=== PATIENT | male | born 2000 | race Hispanic/Latino ===

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

== ENCOUNTER 2019-01-15 09:05 | Emergency (ER) | payer MEDICAID, OTHER ==
[2019-01-15 10:09] LABS: Basophils # (Auto) 0.2 K/mm3 (0.0-0.1); Basophils % (Auto) 1.4 % (0.0-1.8); Eosinophils # (Auto) 0.2 K/mm3 (0.0-0.4); Eosinophils % (Auto) 1.5 % (0.0-4.3); Hematocrit 46.6 % (35.5-45.6); Hemoglobin 15.2 gm/dl (11.8-15.2); Lymphocytes # (Auto) 1.6 K/mm3 (1.2-5.4); Lymphocytes % (Auto) 11.3 % (13.4-35.0); Mean Corpuscular HGB Conc 33 % (32-34); Mean Corpuscular Volume 81 fl (84-94); Monocytes % (Auto) 6.9 % (0.0-7.3); Platelet Count 263 K/mm3 (140-440); Red Blood Count 5.75 M/mm3 (3.65-5.03); Red Cell Distribution Width 14.2 % (13.2-15.2)
--- NOTE | 2019-01-15 10:16 | Emergency Department Report ---
HPI - General Chief Complaint: Alcohol Time Seen by Provider: 01/15/19 09:23 - HPI HPI: 18-year-old male presents to the emergency department via EMS with complaint of some depression and using some illicit substances and alcohol last night. The patient identifies himself as a luna male and says that he has not supported at home. He feels that he is constantly judged and therefore he has not loved. The patient is tearful. The family members he is talking about are at bedside currently. Apparently they found him this morning landing on the ground, crying. He admitted to finding a reason to "sneak out" last night and he drank alcohol, smoked marijuana and did a dose of ecstasy. He has a past medical history listed of ADHD. Patient currently denies any suicidal or homicidal ideations. Family says that he has a history of suicidal ideations in the past and possibly even an attempt in which he cut his wrist and has been to an inpatient psychiatric facility before. The patient says he has trouble sleeping at night. 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 ED Past Medical Hx - Past Medical History Previous Medical History?: Yes Hx Psychiatric Treatment: (ADHD) Hx Asthma: Yes - Surgical History Additional Surgical History: T&A, left femur, left arm - Social History Smoking Status: Never Smoker Substance Use Type: Alcohol, Marijuana, Other ED Review of Systems ROS: Stated complaint: OVERDOSE Other details as noted in HPI Comment: All other systems reviewed and negative Constitutional: denies: chills, fever Respiratory: denies: cough, shortness of breath Cardiovascular: denies: chest pain, palpitations Gastrointestinal: denies: nausea, vomiting Skin: denies: rash, lesions Neurological: denies: headache, weakness Psychiatric: depression. denies: homicidal thoughts, suicidal thoughts Physical Exam - Physical Exam Vital Signs: Vital Signs 01/15/19 09:17 Temperature 98.3 F Pulse Rate 98 H Respiratory 20 Rate Blood Pressure 147/65 O2 Sat by Pulse 98 Oximetry Physical Exam: GENERAL: The patient is well-developed well-nourished. HENT: Normocephalic. Atraumatic. Patient has moist mucous membranes. EYES: Extraocular motions are intact. NECK: Supple. Trachea is midline. CHEST/LUNGS: Clear to auscultation. There is no respiratory distress noted. HEART/CARDIOVASCULAR: Regular. There is no tachycardia. There is no murmur. ABDOMEN: Abdomen is soft, nontender. Patient has normal bowel sounds. There is no abdominal distention. SKIN: Skin is warm and dry. NEURO: The patient is awake, alert, and oriented. The patient is cooperative. The patient has no focal neurologic deficits. Normal speech. MUSCULOSKELETAL: There is no tenderness or deformity. There is no evidence of acute injury. PSYCH: Patient is tearful. ED Course Vital Signs 01/15/19 09:17 Temperature 98.3 F Pulse Rate 98 H Respiratory 20 Rate Blood Pressure 147/65 O2 Sat by Pulse 98 Oximetry ED Medical Decision Making - Lab Data Result diagrams: 01/15/19 09:39 01/15/19 09:39 - EKG Data -: EKG Interpreted by Me EKG shows normal: sinus rhythm, axis, intervals, QRS complexes, ST-T waves Rate: normal - EKG Data When compared to previous EKG there are: previous EKG unavailable Interpretation: normal EKG - Medical Decision Making This patient presents to the emergency department for evaluation after he drank alcohol, use ecstasy, and smoked marijuana last night. The patient did so because he says that he feels unloved and judged by his family due to his homosexuality. The patient does appear to have a history of some depression, suicidal ideations and even a possible suicide attempt past, the patient currently denies any suicidal or homicidal ideations, or any auditory or visual hallucinations. Patient's labs have been mostly unremarkable. Urine drug was p ositive for amphetamines which is most likely from the ecstasy. The patient does not appear acutely intoxicated. Blood alcohol level is negative. He was seen by the psychiatric team who agrees that the patient does not meet criteria or require a 1013 or involuntary psychiatric admission. He was given multiple outpatient psychiatric referrals. He has been instructed to return to the emergency Department with any worsening of his symptoms, thoughts of harming himself or others, or with any acute distress. - Differential Diagnosis depression, substance abuse, bipolar disorder, mood disorder Critical Care Time: No Critical care attestation.: If time is entered above; I have spent that time in minutes in the direct care of this critically ill patient, excluding procedure time. ED Disposition Clinical Impression: Substance abuse Depression Qualifiers: Depression Type: unspecified Qualified Code(s): F32.9 - Major depressive disorder, single episode, unspecified Disposition: DC-01 TO HOME OR SELFCARE Is pt being admited?: No Condition: Stable Instructions: Depression (ED), Suicide Prevention for Adults (ED), Polysubstance Abuse (ED) Additional Instructions: You have been given multiple referrals for outpatient psychiatric care. I have also given you the referral for the [facility] Department. Return to the emergency department with any worsening of your symptoms, thoughts of harming yourself or others, or with any acute distress. Please avoid any further alcohol or illicit drug use. Referrals: [facility] [Outside] - 2-3 Days [facility] [Outside] - 2-3 Days Time of Disposition: 15:31
[2019-01-15 10:24] LABS: BUN/Creatinine Ratio 14; Blood Urea Nitrogen 10 mg/dL (9-20); Calcium 9.1 mg/dL (8.4-10.2); Hemolysis Index 7
[2019-01-15 11:45] VITALS: BP 116/49
[2019-01-15 12:21] LABS: Bilirubin,Urine NEG (Negative); Blood,Urine NEG (Negative); Color,Urine Yellow (Yellow); Mucus,Urine FEW /HPF; Protein,Urine <15 mg/dL mg/dL (Negative); Urobilinogen,Urine < 2.0 mg/dL (<2.0)
[2019-01-15 13:02] LABS: WBC,Urine < 1.0 /HPF (0.0-6.0)
--- NOTE | 2019-01-15 13:17 | Consultation ---
History of Present Illness - Reason for Consult Consult date: 01/15/19 Reason for consult: Mental Health Evaluation Requesting physician: DAVID NORMAN - Chief Complaint Chief complaint: "I used to much drugs" - History of Present Psychiatric Illness 18 y.o. male who presented to the ER for possible overdose. Today the patient was calm and cooperative during the assessment. He stated that he met an adult male online for a sexual encounter. He stated that this male offered him "drugs" that he wasn't familiar with. He stated that he ingested the drugs and felt side effects after the sexual encounter. He stated that the sexual encounter was "consensual." Once he returned home, the patient stated that he felt strange and was brought to the ER for evaluation. The patient has a hx of self injury. He denies any previous self injury behavior since his last mental health hospitalization. He denies SI/HI's and AVH's. He denies being depressed. He denies alcohol consumption (etoh). Medications and Allergies Allergies Allergy/AdvReac Type Severity Reaction Status Date / Time No Known Allergies Allergy Verified 09/05/17 15:47 Past psychiatric history - Past Medical History Past Medical History: No medical history Past Surgical History: No surgical history - past Psychiatric treatment and history psychiatric treatment history: Hx of self injury. Denies a fam psy hx. - Social History Social history: lives with family Mental Status Exam - Vital signs Last Vital Signs Temp 98.3 F 01/15/19 09:17 Pulse 92 H 01/15/19 11:44 Resp 17 01/15/19 11:44 BP 116/49 01/15/19 11:44 Pulse Ox 99 01/15/19 11:44 - Exam Narrative exam: MSE: Appearance: calm, cooperative Behavior: regular eye contact Speech: regular rate and tone Mood: "better" Affect: congruent to mood Thought Process: logical Thought Content: denies SI/HI's and AVH's Motor Activity: sitting up in bed Cognition: A/O x 3 Insight: appropriate Judgment: fair Results Result Diagrams: 01/15/19 09:39 01/15/19 09:39 Abnormal lab results 01/15/19 01/15/19 01/15/19 Range/Units 09:39 09:39 09:39 WBC (4.5-11.0) K/mm3 RBC (3.65-5.03) M/mm3 Hct (35.5-45.6) % MCV (84-94) fl MCH (28-32) pg Lymph % (Auto) (13.4-35.0) % Elliott # (0.0-0.8) K/mm3 Baso # (0.0-0.1) K/mm3 Seg Neutrophils % (40.0-70.0) % Seg Neutrophils # (1.8-7.7) K/mm3 Potassium 3.5 L (3.6-5.0) mmol/L Carbon Dioxide 21 L (22-30) mmol/L Creatinine 0.7 L (0.8-1.5) mg/dL Salicylates < 0.3 L (2.8-20.0) mg/dL Acetaminophen < 5.0 L (10.0-30.0) ug/mL 01/15/19 Range/Units 09:39 WBC 14.3 H (4.5-11.0) K/mm3 RBC 5.75 H (3.65-5.03) M/mm3 Hct 46.6 H (35.5-45.6) % MCV 81 L (84-94) fl MCH 26 L (28-32) pg Lymph % (Auto) 11.3 L (13.4-35.0) % Elliott # 1.0 H (0.0-0.8) K/mm3 Baso # 0.2 H (0.0-0.1) K/mm3 Seg Neutrophils % 78.9 H (40.0-70.0) % Seg Neutrophils # 11.2 H (1.8-7.7) K/mm3 Potassium (3.6-5.0) mmol/L Carbon Dioxide (22-30) mmol/L Creatinine (0.8-1.5) mg/dL Salicylates (2.8-20.0) mg/dL Acetaminophen (10.0-30.0) ug/mL All other labs normal. Assessment and Plan Assessment and plan: Impression: Hx of self injury. Unintentional overdose. Today the patient was calm and cooperative during the assessment. Recommendation/Plan: Discussed the importance to abstain from recreational drug use with the patient, he verbalized understanding. Dispo: The patient can follow up with [facility] for outpatient psy services. Staffed with Dr Nisha Dumont.
[2019-01-15 14:27] LABS: Opiate Screen,Urine PRESUMPTIVE NEGATIVE
[2019-01-15 14:44] LABS: Amphetamine Screen,Urine PRESUMPTIVE POSITIVE
[2019-01-15 14:54] LABS: Benzodiazepines Screen,Urine PRESUMPTIVE NEGATIVE; Cannabinoid Screen,Urine PRESUMPTIVE NEGATIVE; Cocaine Screen,Urine PRESUMPTIVE NEGATIVE; Methadone Screen,Urine PRESUMPTIVE NEGATIVE
== END 2019-01-15 13:47 | disposition home or self-care (01) ==
LOC: ED 09:05
DX: F32.9 Major depressive disorder, single episode, unspecified (principal); F90.9 Attention-deficit hyperactivity disorder, unspecified type; F12.10 Cannabis abuse, uncomplicated
CPT/HCPCS: 36415; 80048; 80307; 80320; 81001; 85025; 93005; 93010; G0480